=== PATIENT | female | born 1950 | race Caucasian/White ===

== ENCOUNTER 2021-04-06 10:25 | Outpatient (CLI) | payer MEDICARE ==
[2021-04-06 11:58] LABS: Anion Gap 13 mmol/L (10-20); BUN (Urea Nitrogen) 23 mg/dL (9.8-20.1); Calc. Creatinine Clearance 0 mL/min (70-130); Calcium 9.1 mg/dL (7.8-10.44); Carbon Dioxide 27 mmol/L (23-31); Chloride 104 mmol/L (98-107); Glucose 119 mg/dL (80-115); Potassium 4.3 mmol/L (3.5-5.1); Sodium 140 mmol/L (136-145)
[2021-04-06 21:58] LABS: SARS-CoV-2 PCR by NAA Not Detected (NotDetected)
== END 2021-04-06 10:26 | disposition home or self-care (01) ==
LOC: LABBT 10:25
PROVIDERS: ATTEND Plastic Surgery
DX: Z01.818 Encounter for other preprocedural examination (principal); Z20.822 Contact with and (suspected) exposure to COVID-19
CPT/HCPCS: 80048; 80053; 80061; 82306; 85025; 93005; U0003; U0005; 36415; 93010

== ENCOUNTER 2021-04-09 07:24 | Inpatient (IN) | payer MEDICARE ==
[2021-04-09] MEDS ORDERED: Fentanyl 250 MCG/5 ML VIAL ONE (11:07)
[2021-04-09] MEDS ORDERED: SUGAMMADEX SODIUM 200 MG/2 ML VIAL ONE (11:07)
[2021-04-09] MEDS ORDERED: Lidocaine 2% Jelly 5 ML TUBE ONE (11:15)
[2021-04-09] MEDS ORDERED: Bupivacaine 0.25% HCL 30 ML VIAL ONE (14:15)
[2021-04-09] MEDS ORDERED: EPINEPHrine 1 MG/ML AMP ONE (14:15)
[2021-04-09] MEDS ORDERED: Methylene Blue 50 MG/10 ML AMPUL ONE (14:15)
[2021-04-09] MEDS ORDERED: PHENYLEPHRINE-NS 100 MCG/ML 10 ML SYRINGE ONE ×2 (14:31→16:56)
[2021-04-09] MEDS ORDERED: Dexamethasone 20 MG/5 ML VIAL ONE (14:31)
[2021-04-09] MEDS ORDERED: ePHEDrine 50 MG/ML VIAL ONE (14:31)
[2021-04-09] MEDS ORDERED: Ondansetron PF 4 MG/2 ML Vial ONE (14:31)
[2021-04-09] MEDS ORDERED: Lidocaine 1% PF 5 ML VIAL ONE (14:31)
[2021-04-09] MEDS ORDERED: PROPOFOL 200 MG/20 ML VIAL ONE (14:31)
[2021-04-09] MEDS ORDERED: Ketorolac Tromethamine 30 MG/ML VIAL ONE (14:31)
[2021-04-09] MEDS ORDERED: Isosulfan Blue 50 MG/5 ML VIAL ONE (14:37)
[2021-04-09] MEDS ORDERED: Fentanyl 100 MCG/2 ML VIAL ONE (17:41)
[2021-04-09] MEDS ORDERED: Morphine 4 MG/ML VIAL ONE (17:58)
[2021-04-09] MEDS ORDERED: HYDROcodone/Acetaminophen 5/325 mg Tablet PO PRN (20:01)
[2021-04-09] MEDS ORDERED: Morphine 4 MG/ML VIAL SLOW IVP PRN (20:02)
[2021-04-09] MEDS ORDERED: Ondansetron PF 4 MG/2 ML Vial IVP PRN (20:04)
[2021-04-09] MEDS: Morphine 4 MG/ML VIAL SLOW IVP PRN (20:59)
[2021-04-09 21:08] VITALS: BMI 35.6
[2021-04-09] MEDS: HYDROcodone/Acetaminophen 5/325 mg Tablet PO PRN (23:09)
[2021-04-10] MEDS: Valsartan 80 MG TAB PO SCH (08:39)
[2021-04-10] MEDS: HYDROcodone/Acetaminophen 5/325 mg Tablet PO PRN ×3 (08:39→20:41)
[2021-04-10] MEDS: Hydrochlorothiazide 25 MG TAB PO SCH (08:40)
[2021-04-10] MEDS ORDERED: FLU VACC QS2021-22(65YR UP)/PF 240 MCG/0.7 ML SYRINGE IM ONE (09:00)
[2021-04-11] MEDS: HYDROcodone/Acetaminophen 5/325 mg Tablet PO PRN ×3 (03:51→16:44)
[2021-04-11] MEDS: Cepastat Lozenges 1 LOZ PO PRN ×2 (05:01→10:48)
[2021-04-11] MEDS: Valsartan 80 MG TAB PO SCH (08:29)
[2021-04-11] MEDS: Hydrochlorothiazide 25 MG TAB PO SCH (08:30)
[2021-04-12] MEDS: Hydrochlorothiazide 25 MG TAB PO SCH (08:53)
[2021-04-12] MEDS: Valsartan 80 MG TAB PO SCH (08:55)
[2021-04-12] MEDS: Morphine 4 MG/ML VIAL SLOW IVP PRN ×2 (12:18→15:30)
[2021-04-12 16:50] VITALS: BP 126/80; TEMP 98.6
== END 2021-04-12 17:43 | disposition home health service (06) | DRG 578 ==
LOC: NM 07:24 → SJJU 17:38 → OBSVTOIN 04-12 10:25
PROVIDERS: ADMIT Plastic Surgery; ATTEND Plastic Surgery
PROC: 0HRBX74 Replacement of Right Upper Arm Skin with Autologous Tissue Substitute, Partial Thickness, External Approach (ICD-10-PCS; principal; 2021-04-09)
PROC: 07BJ0ZX Excision of Left Inguinal Lymphatic, Open Approach, Diagnostic (ICD-10-PCS; 2021-04-09)
PROC: 0JBM0ZZ Excision of Left Upper Leg Subcutaneous Tissue and Fascia, Open Approach (ICD-10-PCS; 2021-04-09)
PROC: 0HB5XZZ Excision of Chest Skin, External Approach (ICD-10-PCS; 2021-04-09)
DX: C44.519 Basal cell carcinoma of skin of other part of trunk (principal); C44.719 Basal cell carcinoma of skin of left lower limb, including hip; E78.00 Pure hypercholesterolemia, unspecified; I10 Essential (primary) hypertension; C44.619 Basal cell carcinoma of skin of left upper limb, including shoulder; Z91.040 Latex allergy status; Z87.891 Personal history of nicotine dependence; Z91.048 Other nonmedicinal substance allergy status
CPT/HCPCS: 78195; 88305; 88307; 88331; 88332; 88342; 94640; 96374; A9541; G0378; J0171; J1100; J1885; J2270; J2405; J2704; J3010; J3490; J7620; Q9968; S0020